=== PATIENT | female | born 1960 | race African-American/Black ===

== ENCOUNTER 2022-07-16 11:15 | Emergency (ER) | payer OTHER ==
[2022-07-16] MEDS ORDERED: SODIUM CHLORIDE 1,000 ML IV ONE (11:36)
[2022-07-16 11:51] VITALS: TEMP 98.1; BMI 39.4
[2022-07-16 12:12] LABS: HEMATOCRIT 40.6 % (32.4-45.2); HEMOGLOBIN 13.5 G/dL (10.7-15.3); MCH 31.4 pg (25.7-33.7); MCHC 33.2 g/dl (32.0-36.0); MEAN CELL VOLUME 94.6 fl (80-96); MEAN PLT VOLUME 7.7 fl (7.5-11.1); PLATELET COUNT 267.1 10^3/uL (134-434); RBC 4.29 10^6/uL (3.60-5.2); WHITE BLOOD COUNT 6.3 10^3/uL (4.0-10.8)
[2022-07-16 12:16] LABS: PLATELET ESTIMATE ADEQUATE
[2022-07-16 12:21] LABS: ALBUMIN 3.7 g/dl (3.4-5.0); BILIRUBIN,TOTAL 0.6 mg/dl (0.2-1); CALCIUM 9.4 mg/dl (8.5-10); CREATININE 0.7 mg/dl (0.55-1.3); TOT PROT 6.8 g/dl (6.4-8.2)
[2022-07-16] MEDS ORDERED: HYDROCHLOROTHIAZIDE 25 MG TABLET (FP) PO ONE (12:29)
[2022-07-16] MEDS ORDERED: HYDROCHLOROTHIAZIDE 25 MG TABLET (FP) ONE (12:35)
[2022-07-16] MEDS ORDERED: metoPROLOL SUCCINATE 25 MG TAB.SR.24H (FP) PO ONE (12:35)
[2022-07-16 14:33] VITALS: BP 153/70; PULSE 79; RESP 18
[2022-07-16] MEDS ORDERED: MECLIZINE HCL 25 MG TABLET (FP) PO ONE (15:26)
[2022-07-16] MEDS ORDERED: MECLIZINE HCL 25 MG TABLET (FP) ONE (15:34)
== END 2022-07-16 16:50 | disposition home or self-care (01) ==
LOC: FER 11:15
PROC: 3E0337Z Introduction of Electrolytic and Water Balance Substance into Peripheral Vein, Percutaneous Approach (ICD-10-PCS; principal; 2022-07-16)
DX: R42 Dizziness and giddiness (principal); I10 Essential (primary) hypertension
CPT/HCPCS: 36415; 80053; 81003; 82550; 84484; 85027; 93005; 99284-25

== ENCOUNTER 2022-12-29 01:31 | Emergency (ER) | payer OTHER ==
[2022-12-29 01:48] VITALS: BP 137/71; PULSE 78; RESP 18; TEMP 98.5; BMI 39.4
[2022-12-29] MEDS ORDERED: ACETAMINOPHEN 500 MG TABLET (FP) PO ONE (01:53)
[2022-12-29] MEDS ORDERED: ACETAMINOPHEN 500 MG TABLET (FP) ONE (01:54)
[2022-12-29] MEDS ORDERED: CEFAZOLIN 500 MG in DEXTROSE 5%-WATER - 50 ML IVPB ONE (02:32)
[2022-12-29] MEDS ORDERED: DIPHTH,PERTUSS(ACELL),TET 0.5 ML DISP.SYRIN IM ONE ×2 (02:37→02:42)
[2022-12-29] MEDS ORDERED: CEFAZOLIN 1 GM in DEXTROSE 5%-WATER - 50 ML IVPB ONE (02:40)
[2022-12-29] MEDS ORDERED: ceFAZolin SODIUM 1 GM VIAL ONE (02:41)
== END 2022-12-29 03:29 | disposition home or self-care (01) ==
LOC: FER 01:31
PROC: 0HQGXZZ Repair Left Hand Skin, External Approach (ICD-10-PCS; principal; 2022-12-29)
PROC: 2W3KX1Z Immobilization of Left Finger using Splint (ICD-10-PCS; 2022-12-29)
PROC: 3E03329 Introduction of Other Anti-infective into Peripheral Vein, Percutaneous Approach (ICD-10-PCS; 2022-12-29)
PROC: 3E0234Z Introduction of Serum, Toxoid and Vaccine into Muscle, Percutaneous Approach (ICD-10-PCS; 2022-12-29)
DX: S62.637A Displaced fracture of distal phalanx of left little finger, initial encounter for closed fracture (principal); W23.0XXA Caught, crushed, jammed, or pinched between moving objects, initial encounter; Y92.129 Unspecified place in nursing home as the place of occurrence of the external cause
CPT/HCPCS: 73140-TC-LT-FY; 90715; 99284-25